=== PATIENT | male | born 1955 | race Caucasian/White ===

== ENCOUNTER 2022-09-21 10:15 | Emergency (ER) | payer OTHER ==
[2022-09-21 11:34] LABS: SARS-CoV-2 NAA Rapid Test Not Detected (NotDetected)
[2022-09-21 13:46] LABS: ALT (SGPT) 26 U/L (8-55); AST (SGOT) 24 U/L (5-34); Albumin 4.5 g/dL (3.4-4.8); Alkaline Phosphatase 73 U/L (40-110); Anion Gap 12 mmol/L (10-20); BUN (Urea Nitrogen) 21 mg/dL (8.4-25.7); Bilirubin, Total 0.9 mg/dL (0.2-1.2); Calc. Creatinine Clearance 0 mL/min (70-130); Calcium 9.2 mg/dL (7.8-10.44); Carbon Dioxide 28 mmol/L (23-31); Chloride 102 mmol/L (98-107); Estimated GFR 94; Globulin 2.8 g/dL (2.4-3.5); Glucose 87 mg/dL (80-115); Protein, Total 7.3 g/dL (5.8-8.1); Sodium 138 mmol/L (136-145)
[2022-09-21 13:56] LABS: #Basophils 0.1 10x3/uL (0.0-0.2); #Eosinphils 0.2 10x3/uL (0.0-0.5); #Monocytes 0.6 10x3/uL (0.0-1.1); #Neutrophils 5.9 10x3/uL (1.5-8.4); %Basophils 0.6 % (0.0-2.0); %Eosinophils 1.8 % (0.0-6.0); %Lymphocytes 16.9 % (18.0-47.0); %Monocytes 7.7 % (0.0-10.0); %Neutrophils 72.8 % (40.0-75.0); Hemoglobin 14.9 g/dL (13.5-17.5); Mean Corpuscular HGB CONC 34.1 g/dL (32.0-36.0); Mean Corpuscular Hemoglobin 33.1 pg (27.0-33.0); Mean Corpuscular Volume 97.1 fl (81.2-95.1); Mean Platelet Volume 9.7 fl (7.4-10.4); Platelet Count 323 10x3/uL (150-450); RBC Distribution Width 12.8 % (11.5-14.5); White Blood Cell (WBC) Count 8.2 10x3/uL (3.5-10.5)
== END 2022-09-21 14:50 | disposition home or self-care (01) ==
LOC: CSHERS 10:15
DX: J20.9 Acute bronchitis, unspecified (principal); Z20.822 Contact with and (suspected) exposure to COVID-19
CPT/HCPCS: 71045; 80053; 84484; 85025; 93005

== ENCOUNTER 2023-05-30 11:18 | Outpatient (CLI) | payer OTHER | END 2023-05-30 11:19 | disposition home or self-care (01) | LOC: CSHRAD 11:18 | PROVIDERS: ATTEND Neurological Surgery | DX: M47.26 Other spondylosis with radiculopathy, lumbar region (principal); N20.0 Calculus of kidney | CPT/HCPCS: 72110 ==

== ENCOUNTER 2025-09-09 10:30 | Emergency (ER) | payer OTHER ==
[2025-09-09] MEDS ORDERED: Bacitracin 1 PK ONE (12:56)
[2025-09-09] MEDS ORDERED: Lidocaine 1% w/Epinephrine 1:200K 30 ML VIAL ONE (12:56)
== END 2025-09-09 13:25 | disposition home or self-care (01) ==
LOC: CSHERS 10:30
DX: S90.852A Superficial foreign body, left foot, initial encounter (principal); M26.621 Arthralgia of right temporomandibular joint; I10 Essential (primary) hypertension; W45.8XXA Other foreign body or object entering through skin, initial encounter
CPT/HCPCS: 99283